=== PATIENT | male | born 1945 | race Caucasian/White ===

== ENCOUNTER 2025-06-23 21:05 | Inpatient (IN) | payer MEDICARE, OTHER ==
[~2025-06-23] VITALS: Ht 175.3 cm; Wt 90.0 kg
[~2025-06-23 21:05] MED LIST: ACET-2247 PO; ALBU2.5V39 NEB; ASPI-1450 PO; ATOR10TA PO; BISA10SU11 PR; BUSP5TAB20 PO; DOCU-385 PO; FAMO20 PO; HEPA50009 SQ; LEVO112T4 PO; MAGN-169 PO; MERO1VIA27 IV; TRAZ-252 PO
[2025-06-23 22:22] LABS: PLATELET COUNT (AUTO) 280 K/uL (150-450); RED BLOOD CELL COUNT(AUTO) 3.42 MIL/uL (4.50-5.90); RED CELL DISTRIBUTION WIDTH 15.1 % (11.5-14.5); WHITE BLOOD COUNT (AUTO) 6.8 K/uL (4.5-11.0)
[2025-06-23 22:24] LABS: CALCIUM, TOTAL 8.4 mg/dL (8.8-10.5); CREATININE 1.03 mg/dL (0.60-1.30); GLOMERULAR FILTR. RATE CALC > 60 mL/min (>60); GLUCOSE,RANDOM 114 mg/dL (70-110); SODIUM SERUM 138 mmol/L (136-145); UREA NITROGEN, BLOOD 22 mg/dL (7-18)
[2025-06-23 23:39] LABS: TROPONIN I-HIGH SENSITIVITY 7 ng/L (<76)
[2025-06-24] MEDS ORDERED: ONDANSETRON HCL 4 MG/2 ML VIAL IVP PRN
[2025-06-24] MEDS ORDERED: ACETAMINOPHEN 325 MG TABLET PO PRN
[2025-06-24] MEDS: HEPARIN SODIUM,PORCINE 5,000 UNITS/ML VIAL SQ SCH (01:07)
[2025-06-24] MEDS: SODIUM CHLORIDE 0.9% 1,000 ML IV ONE (01:07)
[2025-06-24 01:17] LABS: APPEARANCE,URINE HAZY (CLEAR); GLUCOSE, URINE (UA) NEGATIVE (NEGATIVE); LEUKOCYTE ESTERASE ,URINE LARGE (NEGATIVE); NITRATE,URINE POSITIVE (NEGATIVE); OCCULT BLOOD,URINE NEGATIVE (NEGATIVE); PH,URINE DRUG SCREEN 6.5 (5.0-8.0); SPECIFIC GRAVITIY, URINE 1.009 (1.003-1.030)
[2025-06-24 01:25] LABS: ALCOHOL, URINE DRUG SCREEN NEGATIVE (NEGATIVE); AMPHET/METH SCREEN,URINE NEGATIVE (NEGATIVE); BARBITURATE SCREEN, URINE NEGATIVE (NEGATIVE); CANNABINOID SCREEN,URINE NEGATIVE (NEGATIVE); COCAINE SCREEN,URINE NEGATIVE (NEGATIVE); METHADONE SCREEN, URINE NEGATIVE (NEGATIVE)
[2025-06-24 01:35] LABS: SQUAMOUS EPITHELIAL CELL,UR Rare /LPF (None Seen)
[2025-06-24 03:06] VITALS: BP 134/63; PULSE 80; RESP 19; TEMP 97.5; O2SAT 98
[2025-06-24] MEDS: CefTRIAXone 1 GM/DEXTROSE 50 ML IV ONE (06:32)
[2025-06-24 07:35] VITALS: BP 124/76; PULSE 76; RESP 18; TEMP 97.2; O2SAT 98
[2025-06-24] MEDS: DOCUSATE SODIUM 100 MG CAPSULE PO SCH (08:48)
[2025-06-24] MEDS: FAMOTIDINE 20 MG TABLET PO SCH (08:48)
[2025-06-24] MEDS: LORazepam 2 MG/ML VIAL IM ONE (11:56)
[2025-06-25] MEDS: LORazepam 2 MG/ML VIAL IVP PRN (03:37)
[2025-06-25] MEDS: CefTRIAXone 1 GM/DEXTROSE 50 ML IV SCH (04:31)
[2025-06-25] MEDS ORDERED: SODIUM CHLORIDE 0.9% 1,000 ML ONE (04:34)
[2025-06-25 08:00] VITALS: BP 142/84; PULSE 62; RESP 19; TEMP 97.5; O2SAT 99
[2025-06-25 16:00] VITALS: BP 158/84; PULSE 81; RESP 19; TEMP 97.9; O2SAT 96
[2025-06-25 20:28] VITALS: BP 153/85; PULSE 77; RESP 18; TEMP 97.5; O2SAT 96
[2025-06-26 04:04] VITALS: BP 159/86; PULSE 74; RESP 18; TEMP 97.9; O2SAT 98
[2025-06-26] MEDS: LEVOTHYROXINE SODIUM 112 MCG TABLET PO SCH (06:12)
[2025-06-26 06:58] LABS: PLATELET COUNT (AUTO) 351 K/uL (150-450); RED BLOOD CELL COUNT(AUTO) 4.06 MIL/uL (4.50-5.90); RED CELL DISTRIBUTION WIDTH 14.8 % (11.5-14.5); WHITE BLOOD COUNT (AUTO) 5.5 K/uL (4.5-11.0)
[2025-06-26 07:10] LABS: CALCIUM, TOTAL 8.8 mg/dL (8.8-10.5); CREATININE 1.09 mg/dL (0.60-1.30); GLOMERULAR FILTR. RATE CALC > 60 mL/min (>60); GLUCOSE,RANDOM 94 mg/dL (70-110); SODIUM SERUM 139 mmol/L (136-145); UREA NITROGEN, BLOOD 14 mg/dL (7-18)
[2025-06-26 07:22] VITALS: BP_SYST 155; BP_DIAS 91; BP_DIAS 94; PULSE 94; RESP 18; TEMP 97.9; O2SAT 96
[2025-06-26 16:34] VITALS: BP 156/86; PULSE 92; RESP 18; TEMP 98.1; O2SAT 97
[2025-06-26 20:00] VITALS: BP 142/88; PULSE 77; RESP 18; TEMP 97.5; O2SAT 95
[2025-06-27 05:00] VITALS: BP 115/89; PULSE 80; RESP 18; TEMP 97.7; O2SAT 97
[2025-06-27 06:49] LABS: PLATELET COUNT (AUTO) 310 K/uL (150-450); RED BLOOD CELL COUNT(AUTO) 4.09 MIL/uL (4.50-5.90); RED CELL DISTRIBUTION WIDTH 15.3 % (11.5-14.5); WHITE BLOOD COUNT (AUTO) 6.5 K/uL (4.5-11.0)
[2025-06-27 07:02] LABS: CALCIUM, TOTAL 9.0 mg/dL (8.8-10.5); CREATININE 0.92 mg/dL (0.60-1.30); GLOMERULAR FILTR. RATE CALC > 60 mL/min (>60); GLUCOSE,RANDOM 90 mg/dL (70-110); SODIUM SERUM 142 mmol/L (136-145); UREA NITROGEN, BLOOD 15 mg/dL (7-18)
[2025-06-27 08:07] VITALS: BP 133/82; PULSE 83; RESP 18; TEMP 97.9; O2SAT 97
[2025-06-27] MEDS ORDERED: *CLINICAL-MEROPENEM DOSING CLINICAL ONE (13:15)
[2025-06-27 14:31] LABS: GLUCOMETER DEV NAME(LOC) 6N.2C; GLUCOSE,POINT OF CARE 273 MG/DL (70-110)
[2025-06-27] MEDS: PIPERACILLIN/TAZO 3.375 GM/D5W 50 ML IV SCH (14:52)
[2025-06-27 16:40] VITALS: BP 140/80; PULSE 78; RESP 19; TEMP 97.7; O2SAT 98
[2025-06-27 20:36] VITALS: BP 113/58; PULSE 78; RESP 18; TEMP 98.1; O2SAT 97
[2025-06-28 04:52] VITALS: BP 130/90; PULSE 75; RESP 18; TEMP 98.1; O2SAT 97
[2025-06-28 08:22] VITALS: BP 126/67; PULSE 74; RESP 18; TEMP 98; O2SAT 99
[2025-06-28] MEDS ORDERED: BUSP10TA23 PO (11:30)
[2025-06-28] MEDS ORDERED: PIPE3.3719 IV (11:31)
[2025-06-28] MEDS ORDERED: QUET25TA PO (11:31)
[2025-06-28 12:46] VITALS: BP 143/96; PULSE 76; RESP 18; TEMP 98.3; O2SAT 98
== END 2025-06-28 14:37 | DRG 698 ==
LOC: EMS 21:25 → EDH 23:52 → 6S 06-24 02:40
PROVIDERS: ADMIT Internal Medicine; ATTEND Internal Medicine
PROC: GZ58ZZZ Individual Psychotherapy, Cognitive-Behavioral (ICD-10-PCS; principal; 2025-06-24)
PROC: GZ56ZZZ Individual Psychotherapy, Supportive (ICD-10-PCS; 2025-06-24)
DX: T83.510A Infection and inflammatory reaction due to cystostomy catheter, initial encounter (principal); G82.50 Quadriplegia, unspecified; G92.8 Other toxic encephalopathy; F31.5 Bipolar disorder, current episode depressed, severe, with psychotic features; N39.0 Urinary tract infection, site not specified; E03.9 Hypothyroidism, unspecified; N13.9 Obstructive and reflux uropathy, unspecified; B96.1 Klebsiella pneumoniae [K. pneumoniae] as the cause of diseases classified elsewhere; E86.0 Dehydration; F29 Unspecified psychosis not due to a substance or known physiological condition; I11.0 Hypertensive heart disease with heart failure; F41.9 Anxiety disorder, unspecified; K21.9 Gastro-esophageal reflux disease without esophagitis; I25.10 Atherosclerotic heart disease of native coronary artery without angina pectoris; I50.9 Heart failure, unspecified; J44.9 Chronic obstructive pulmonary disease, unspecified; Y84.6 Urinary catheterization as the cause of abnormal reaction of the patient, or of later complication, without mention of misadventure at the time of the procedure; Z86.73 Personal history of transient ischemic attack (TIA), and cerebral infarction without residual deficits; Z91.041 Radiographic dye allergy status; Z88.8 Allergy status to other drugs, medicaments and biological substances; Z79.899 Other long term (current) drug therapy
CPT/HCPCS: 71045; 80048; 80307; 81001; 82962; 83880; 84443; 84484; 85025; 87077; 87081; 87086; 87186; 92507; 92610; 93005; 97163; 97530; 99285; G0378; G0480; J0696; J1630; J1644; J2060; J2543; J7030; 36415-L1; 36415-TC

== ENCOUNTER 2025-06-29 02:00 | Inpatient (IN) | payer MEDICARE, OTHER ==
[~2025-06-29] VITALS: Ht 175.3 cm; Wt 77.3 kg
[~2025-06-29 02:00] MED LIST changes: +BUSP10TA23 PO; -BUSP5TAB20 PO; -MERO1VIA27 IV; +PIPE3.3719 IV; +QUET25TA PO
[2025-06-29 05:00] LABS: CREATININE 0.99 mg/dL (0.60-1.30); GLUCOSE,RANDOM 103 mg/dL (70-110); SODIUM SERUM 132 mmol/L (136-145); UREA NITROGEN, BLOOD 19 mg/dL (7-18)
[2025-06-29 05:01] LABS: CALCIUM, TOTAL 9.1 mg/dL (8.8-10.5); GLOMERULAR FILTR. RATE CALC > 60 mL/min (>60)
[2025-06-29 05:08] LABS: TROPONIN I-HIGH SENSITIVITY 7 ng/L (<76)
[2025-06-29 06:10] LABS: COVID AG,FIA SOURCE NASAL SWAB
[2025-06-29 06:19] LABS: SARS-COV2 (COVID) ANTIGEN,FIA Negative (Negative)
[2025-06-29 06:19] LABS: APPEARANCE,URINE HAZY (CLEAR); GLUCOSE, URINE (UA) NEGATIVE (NEGATIVE); LEUKOCYTE ESTERASE ,URINE LARGE (NEGATIVE); NITRATE,URINE NEGATIVE (NEGATIVE); OCCULT BLOOD,URINE NEGATIVE (NEGATIVE); PH,URINE DRUG SCREEN 5.5 (5.0-8.0); SPECIFIC GRAVITIY, URINE 1.027 (1.003-1.030)
[2025-06-29] MEDS: CefTRIAXone 1 GM/DEXTROSE 50 ML IV ONE (06:24)
[2025-06-29] MEDS: SODIUM CHLORIDE 0.9% 1,000 ML IV ONE (06:24)
[2025-06-29 06:25] LABS: ALCOHOL, URINE DRUG SCREEN NEGATIVE (NEGATIVE); AMPHET/METH SCREEN,URINE NEGATIVE (NEGATIVE); BARBITURATE SCREEN, URINE NEGATIVE (NEGATIVE); CANNABINOID SCREEN,URINE NEGATIVE (NEGATIVE); COCAINE SCREEN,URINE NEGATIVE (NEGATIVE); METHADONE SCREEN, URINE NEGATIVE (NEGATIVE)
[2025-06-29 06:48] LABS: SQUAMOUS EPITHELIAL CELL,UR Rare /LPF (None Seen)
[2025-06-29 06:49] LABS: YEAST,URINE Moderate /HPF (None Seen)
[2025-06-29 08:31] LABS: PLATELET COUNT (AUTO) 331 K/uL (150-450); RED BLOOD CELL COUNT(AUTO) 4.07 MIL/uL (4.50-5.90); RED CELL DISTRIBUTION WIDTH 15.1 % (11.5-14.5); WHITE BLOOD COUNT (AUTO) 8.1 K/uL (4.5-11.0)
[2025-06-29 08:41] LABS: CREATINE KINASE, TOTAL ONLY 135 U/L (39-308)
[2025-06-29 08:44] LABS: LACTIC ACID 1.0 mmol/L (0.4-2.0)
[2025-06-29] MEDS: LORazepam 2 MG/ML VIAL IM ONE (10:00)
[2025-06-29] MEDS ORDERED: BISACODYL 10 MG RECTAL RECTAL SUPPOSITORY PR PRN (15:00)
[2025-06-29] MEDS ORDERED: HYDROCODONE/ACETAMINOPHEN 5-325 MG TABLET PO PRN (15:00)
[2025-06-29] MEDS ORDERED: ONDANSETRON HCL 4 MG/2 ML VIAL IVP PRN (15:00)
[2025-06-29] MEDS ORDERED: MAGNESIUM HYDROXIDE SUSPENSION 30 ML UDCUP PO PRN (15:00)
[2025-06-29] MEDS: HEPARIN SODIUM,PORCINE 5,000 UNITS/ML VIAL SQ SCH (15:51)
[2025-06-29] MEDS: LORazepam 2 MG/ML VIAL IVP ONE (16:40)
[2025-06-29] MEDS: DOCUSATE SODIUM 100 MG CAPSULE PO SCH (20:07)
[2025-06-29] MEDS: ATORVASTATIN CALCIUM 10 MG TABLET PO SCH (22:55)
[2025-06-29 23:31] VITALS: BP 151/86; PULSE 79; RESP 19; TEMP 97.7; O2SAT 98
[2025-06-30 04:30] VITALS: BP 147/82; PULSE 77; RESP 19; TEMP 97.9; O2SAT 97
[2025-06-30 06:58] LABS: PLATELET COUNT (AUTO) 313 K/uL (150-450); RED BLOOD CELL COUNT(AUTO) 4.05 MIL/uL (4.50-5.90); RED CELL DISTRIBUTION WIDTH 15.0 % (11.5-14.5); WHITE BLOOD COUNT (AUTO) 5.7 K/uL (4.5-11.0)
[2025-06-30 07:06] LABS: CALCIUM, TOTAL 8.8 mg/dL (8.8-10.5); CREATININE 0.67 mg/dL (0.60-1.30); GLOMERULAR FILTR. RATE CALC > 60 mL/min (>60); GLUCOSE,RANDOM 74 mg/dL (70-110); SODIUM SERUM 141 mmol/L (136-145); UREA NITROGEN, BLOOD 17 mg/dL (7-18)
[2025-06-30 07:45] VITALS: BP 144/85; PULSE 75; RESP 18; TEMP 97; O2SAT 97
[2025-06-30] MEDS: PANTOPRAZOLE SODIUM 40 MG DR TABLET PO SCH (10:05)
[2025-06-30] MEDS: ASPIRIN 81 MG CHEWABLE TABLET PO SCH (10:05)
[2025-06-30] MEDS: CefTRIAXone 1 GM/DEXTROSE 50 ML IV SCH (10:06)
[2025-06-30] MEDS ORDERED: SODIUM CHLORIDE 0.9% 500 ML IV ONE (10:14)
[2025-06-30 12:00] VITALS: BP 145/80; PULSE 86; RESP 19; TEMP 97.7; O2SAT 96
[2025-06-30 15:40] VITALS: BP 140/69; PULSE 87; RESP 19; TEMP 97.8; O2SAT 97
[2025-06-30 19:16] VITALS: BP 118/92; PULSE 94; RESP 19; TEMP 98.2; O2SAT 96
[2025-06-30] MEDS: ACETAMINOPHEN 325 MG TABLET PO PRN (20:12)
[2025-07-01] MEDS: ZOLPIDEM TARTRATE 5 MG TABLET PO PRN (00:31)
[2025-07-01 04:49] VITALS: BP 127/70; PULSE 75; RESP 19; TEMP 97.7; O2SAT 99
[2025-07-01] MEDS: LEVOTHYROXINE SODIUM 112 MCG TABLET PO SCH (06:06)
[2025-07-01 07:52] VITALS: BP 140/72; PULSE 73; RESP 20; TEMP 98; O2SAT 95
[2025-07-01 11:01] LABS: PLATELET COUNT (AUTO) 332 K/uL (150-450); RED BLOOD CELL COUNT(AUTO) 3.93 MIL/uL (4.50-5.90); RED CELL DISTRIBUTION WIDTH 14.9 % (11.5-14.5); WHITE BLOOD COUNT (AUTO) 4.8 K/uL (4.5-11.0)
[2025-07-01 11:13] LABS: CALCIUM, TOTAL 8.4 mg/dL (8.8-10.5); CREATININE 0.69 mg/dL (0.60-1.30); GLOMERULAR FILTR. RATE CALC > 60 mL/min (>60); GLUCOSE,RANDOM 118 mg/dL (70-110); SODIUM SERUM 138 mmol/L (136-145); UREA NITROGEN, BLOOD 18 mg/dL (7-18)
[2025-07-01 11:38] VITALS: BP 142/81; PULSE 80; RESP 19; TEMP 97.8; O2SAT 96
[2025-07-01 20:19] VITALS: BP 139/90; PULSE 90; RESP 19; TEMP 99; O2SAT 97
[2025-07-02 00:04] VITALS: BP_SYST 14; BP_SYST 147; BP_DIAS 96; PULSE 80; RESP 22; TEMP 98.1; O2SAT 96
[2025-07-02 03:56] VITALS: BP 151/94; PULSE 81; RESP 20; TEMP 97.5; O2SAT 96
[2025-07-02 07:13] LABS: PLATELET COUNT (AUTO) 317 K/uL (150-450); RED BLOOD CELL COUNT(AUTO) 4.00 MIL/uL (4.50-5.90); RED CELL DISTRIBUTION WIDTH 14.9 % (11.5-14.5); WHITE BLOOD COUNT (AUTO) 6.1 K/uL (4.5-11.0)
[2025-07-02 07:32] LABS: CALCIUM, TOTAL 8.6 mg/dL (8.8-10.5); CREATININE 0.77 mg/dL (0.60-1.30); GLOMERULAR FILTR. RATE CALC > 60 mL/min (>60); GLUCOSE,RANDOM 105 mg/dL (70-110); SODIUM SERUM 140 mmol/L (136-145); UREA NITROGEN, BLOOD 18 mg/dL (7-18)
[2025-07-02 08:17] VITALS: BP 122/81; PULSE 78; RESP 18; TEMP 97.5; O2SAT 96
[2025-07-02] MEDS ORDERED: SODIUM CHLORIDE 0.9% 500 ML IV ONE (10:20)
[2025-07-02 16:30] VITALS: BP 152/66; PULSE 84; RESP 20; TEMP 98.2; O2SAT 95
[2025-07-02 21:10] VITALS: BP 137/89; PULSE 76; RESP 20; TEMP 97.7; O2SAT 96
[2025-07-03 04:32] VITALS: BP 126/80; PULSE 66; RESP 20; TEMP 97.9; O2SAT 95
[2025-07-03 08:00] VITALS: BP 120/79; PULSE 77; RESP 20; TEMP 97.7; O2SAT 96
[2025-07-03 16:45] VITALS: BP 137/87; PULSE 82; RESP 19; TEMP 97.7; O2SAT 96
[2025-07-03 20:00] VITALS: BP 144/88; PULSE 77; RESP 18; TEMP 97.7; O2SAT 97
[2025-07-04 04:00] VITALS: BP 145/88; PULSE 76; RESP 16; TEMP 97.3; O2SAT 98
[2025-07-04 08:02] VITALS: BP 136/95; PULSE 81; RESP 17; TEMP 97.9; O2SAT 97
[2025-07-04 13:43] VITALS: BP 139/84; PULSE 83; RESP 16; TEMP 99.5; O2SAT 96
[2025-07-04] MEDS: MORPHINE SULFATE 4 MG/ML SYRINGE IVP PRN (13:43)
[2025-07-04 19:45] VITALS: BP 139/75; PULSE 79; RESP 18; TEMP 98.1; O2SAT 98
[2025-07-05 04:48] VITALS: BP 106/77; PULSE 74; RESP 18; TEMP 98.1; O2SAT 96
[2025-07-05 07:06] LABS: PLATELET COUNT (AUTO) 339 K/uL (150-450); RED BLOOD CELL COUNT(AUTO) 4.37 MIL/uL (4.50-5.90); RED CELL DISTRIBUTION WIDTH 15.0 % (11.5-14.5); WHITE BLOOD COUNT (AUTO) 6.9 K/uL (4.5-11.0)
[2025-07-05 07:13] LABS: CALCIUM, TOTAL 9.0 mg/dL (8.8-10.5); CREATININE 0.88 mg/dL (0.60-1.30); GLOMERULAR FILTR. RATE CALC > 60 mL/min (>60); GLUCOSE,RANDOM 91 mg/dL (70-110); SODIUM SERUM 135 mmol/L (136-145); UREA NITROGEN, BLOOD 27 mg/dL (7-18)
[2025-07-05 07:54] VITALS: BP 136/81; PULSE 75; RESP 18; TEMP 97.6; O2SAT 100
[2025-07-05 20:03] VITALS: BP 148/77; PULSE 85; RESP 19; TEMP 98.6; O2SAT 96
[2025-07-05] MEDS: ESZOPICLONE 2 MG TABLET PO SCH (20:56)
[2025-07-06 04:07] VITALS: BP 134/80; PULSE 80; RESP 18; TEMP 97.2; O2SAT 98
[2025-07-06 09:19] VITALS: BP 132/83; PULSE 71; RESP 18; TEMP 96.6; O2SAT 100
[2025-07-06] MEDS ORDERED: ESZO2TAB46 PO (14:17)
[2025-07-06 15:34] VITALS: BP 127/98; PULSE 81; RESP 18; TEMP 98.2; O2SAT 98
== END 2025-07-06 18:35 | DRG 177 ==
LOC: EMS 02:01 → EDH 06:52 → 5S 21:49 → 6S 07-02 04:04
PROVIDERS: ADMIT Internal Medicine; ATTEND Internal Medicine
DX: J15.69 Pneumonia due to other Gram-negative bacteria (principal); G82.50 Quadriplegia, unspecified; G93.41 Metabolic encephalopathy; J44.0 Chronic obstructive pulmonary disease with (acute) lower respiratory infection; F02.84 Dementia in other diseases classified elsewhere, unspecified severity, with anxiety; F02.818 Dementia in other diseases classified elsewhere, unspecified severity, with other behavioral disturbance; F02.811 Dementia in other diseases classified elsewhere, unspecified severity, with agitation; Z20.822 Contact with and (suspected) exposure to COVID-19; E03.9 Hypothyroidism, unspecified; G47.00 Insomnia, unspecified; I50.9 Heart failure, unspecified; G30.9 Alzheimer's disease, unspecified; E78.00 Pure hypercholesterolemia, unspecified; F29 Unspecified psychosis not due to a substance or known physiological condition; I25.10 Atherosclerotic heart disease of native coronary artery without angina pectoris; K21.9 Gastro-esophageal reflux disease without esophagitis; Z79.899 Other long term (current) drug therapy; I69.30 Unspecified sequelae of cerebral infarction; Z78.1 Physical restraint status; Z87.440 Personal history of urinary (tract) infections; Z87.820 Personal history of traumatic brain injury; Z91.041 Radiographic dye allergy status; Z91.51 Personal history of suicidal behavior
CPT/HCPCS: 51702; 71045; 80048; 80307; 81001; 82140; 82550; 83605; 83735; 84484; 85025; 85610; 87040; 87081; 87086; 93005; 96365; 97163; 97530; 99285; J0696; J1630; J1644; J2060; J2270; J7030; J7040; 36415-L1; 36415-TC